=== PATIENT | male | born 1935 | race Caucasian/White ===

== ENCOUNTER 2017-11-20 18:55 | Emergency (ER) | payer MEDICARE, OTHER ==
[2017-11-20 19:17] VITALS: BP 149/80
[2017-11-20] MEDS ORDERED: Sodium Chloride 0.9% 10 ML Syringe FLUSH PRN (19:35)
[2017-11-20] MEDS ORDERED: HYDROmorphone 0.5 MG/0.5 ML SYRINGE IVPUSH ONE (19:35)
[2017-11-20] MEDS ORDERED: Ondansetron 4 MG/2 ML SDV IVPUSH ONE (19:36)
--- NOTE | 2017-11-20 19:39 | EDM.PDOC ---
ED HPI GENERAL MEDICAL PROBLEM - General Chief Complaint: Lower Extremity Injury/Pain Stated Complaint: FELL ON HIP ON THE ICE Time Seen by Provider: 11/20/17 19:27 Source of Information: Reports: Patient History Limitations: Reports: No Limitations - History of Present Illness INITIAL COMMENTS - FREE TEXT/NARRATIVE: Patient is a 82-year-old male presents ED complaining of left inguinal pain. Patient was snowblowing earlier this afternoon when turnaround slipped on the ice and his left leg went outward. Patient felt a pop in his inguinal region with worsening pain over the next few hours. Patient has increasing pain with palpation and also with walking. He is concerned he may a fractured his pelvis/ hip. He has a history of left hip replacement approx. 6 years ago. He has no pain to the lateral aspect of the hip. No pain to the femur, knee, lower leg, ankle, or foot. He denies falling or hitting his head nor injuring his neck, and back. Patient last ate at 1800 hrs. Left Groin Pain Score (Numeric/FACES): 8 - Related Data Allergies Allergy/AdvReac Type Severity Reaction Status Date / Time pain pill AdvReac Stomach Uncoded 11/20/17 20:07 Upset Home Meds: Home Meds Albuterol/Ipratropium [DuoNeb 3.0-0.5 MG/3 ML] 2 inh INH QID PRN 12/16/13 [ History] Losartan [Cozaar] 100 mg PO DAILY 30 Days tablet 12/20/13 [Rx] Albuterol/Ipratropium [DuoNeb 3.0-0.5 MG/3 ML] 3 ml NEB QID #60 neb 05/25/16 [Rx ] Aspirin 81 mg PO DAILY 11/20/17 [History] atorvaSTATin [Lipitor] 40 mg PO DAILY 11/20/17 [History] Past Medical History Cardiovascular History: Reports: High Cholesterol, Hypertension, SOB on Exertion Respiratory History: Reports: COPD Musculoskeletal History: Reports: Arthritis, Osteoarthritis Oncologic (Cancer) History: Reports: Other (See Below) Other Oncologic History: skin - Past Surgical History Neurological Surgical History: Reports: C-Spine, Lumbar Spine Musculoskeletal Surgical History: Reports: Hip Replacement, Joint Replacement, Shoulder Surgery Social & Family History - Family History Family Medical History: Noncontributory - Tobacco Use Smoking Status *Q: Former Smoker Years of Tobacco use: 10 Packs/Tins Daily: 0.5 Used Tobacco, but Quit: Yes Month Tobacco Last Used: 1 - Caffeine Use Caffeine Use: Reports: Coffee, Tea - Recreational Drug Use Recreational Drug Use: No - Living Situation & Occupation Living situation: Reports: Occupation: Retired Review of Systems - Review of Systems Review Of Systems: ROS reveals no pertinent complaints other than HPI. ED EXAM, GENERAL - Physical Exam Exam: See Below Exam Limited By: No Limitations General Appearance: Alert, WD/WN, Mild Distress Eye Exam: Bilateral Eye: PERRL Ears: Normal External Exam, Normal Canal, Hearing Grossly Normal, Normal TMs Nose: Normal Inspection Throat/Mouth: Normal Inspection, Normal Voice, No Airway Compromise Head: Atraumatic, Normocephalic Neck: Normal Inspection, Supple, Non-Tender, Full Range of Motion Respiratory/Chest: No Respiratory Distress, Lungs Clear, Normal Breath Sounds Cardiovascular: Normal Peripheral Pulses, Regular Rate, Rhythm Peripheral Pulses: 4+: Radial (L) GI/Abdominal: Normal Bowel Sounds, Soft, Non-Tender, No Organomegaly, No Distention (Male) Exam: No Hernia, Normal Inspection. No: Inguinal Lymphadenopathy, Scrotum Tenderness (L), Scrotum Tenderness (R), Testicular Tenderness (L), Testicular Tenderness (R) Back Exam: Normal Inspection Extremities: Normal Inspection Neurological: Alert, Oriented, CN II-XII Intact, Normal Cognition, No Motor/ Sensory Deficits Psychiatric: Normal Affect, Normal Mood Skin Exam: Warm, Dry, Intact, Normal Color, No Rash Course - Vital Signs Last Recorded V/S: Last Vital Signs Temp 98.1 F 11/20/17 19:12 Pulse 84 11/20/17 19:12 Resp 16 11/20/17 19:12 BP 149/80 H 11/20/17 19:12 Pulse Ox 95 11/20/17 19:12 - Orders/Labs/Meds Orders: Active Orders 24 hr Category Date Time Status Peripheral IV Care [RC] . DIRECTED Care 11/20/17 19:36 Active CPK [CREATINE KINASE,CK] [CHEM] Stat Lab 11/20/17 19:50 Received Sodium Chloride 0.9% [Normal Saline] 1,000 ml Med 11/20/17 19:45 Active IV ASDIRECTED Sodium Chloride 0.9% [Saline Flush] Med 11/20/17 19:35 Active 10 ml FLUSH ASDIRECTED PRN Peripheral IV Insertion Adult [OM.PC] Routine Oth 11/20/17 19:35 Ordered Medication Orders Sodium Chloride (Normal Saline) 1,000 mls @ 125 mls/hr IV ASDIRECTED DIANA Last Admin: 11/20/17 20:00 Dose: 125 mls/hr Sodium Chloride (Saline Flush) 10 ml FLUSH ASDIRECTED PRN PRN Reason: Keep Vein Open Last Admin: 11/20/17 20:10 Dose: 10 ml Meds: Medications Generic Name Dose Route Start Last Admin Trade Name Freq PRN Reason Stop Dose Admin Sodium Chloride 1,000 mls @ 125 mls/hr 11/20/17 19:45 11/20/17 20:00 Normal Saline IV 125 mls/hr ASDIRECTED DIANA Administration Sodium Chloride 10 ml 11/20/17 19:35 11/20/17 20:10 Saline Flush FLUSH 10 ml ASDIRECTED PRN Administration Keep Vein Open Discontinued Medications Generic Name Dose Route Start Last Admin Trade Name Freq PRN Reason Stop Dose Admin Hydromorphone HCl 0.5 mg 11/20/17 19:35 11/20/17 20:05 Dilaudid IVPUSH 11/20/17 19:36 0.5 mg ONETIME ONE Administration Ondansetron HCl 4 mg 11/20/17 19:36 11/20/17 20:00 Zofran IVPUSH 11/20/17 19:37 4 mg ONETIME ONE Administration - Re-Assessments/Exams Free Text/Narrative Re-Assessment/Exam: IV established with normal saline 125 mL per hour, Dilaudid 0.5 mg IVP, and Zofran 4 mg IVP. We'll obtain a CT of the pelvis with contrast to evaluate for pelvic and hip fracture. 11/20/17 21:20 CT of the pelvis impression: Incidental findings as noted above. Nothing acute is appreciated on CT study the pelvis. 11/20/17 21:49 reassessment, should results of CT study with the patient. Patient's pain has improved with the above therapies. Will discharge patient home with instructions as documented. No narcotics will be discharged with the patient. He has a history of inappropriately taking narcotics requiring hospitalization. Departure - Departure Time of Disposition: 21:50 Disposition: Home, Self-Care 01 Condition: Good Clinical Impression: Left groin pain - Discharge Information Instructions: Muscle Strain, [id number] Referrals: Michael Drummond MD [Primary Care Provider] - Forms: ED Department Discharge Additional Instructions: Utilize Aleve 1-2 tabs twice a day as needed for groin pain. In addition can take Tylenol 650 mg every 4-6 hours for pain as well. Refrain from any activities that cause worsening pain. Follow-up with your primary care provider for reevaluation if pain persists. Return to the ED if you develop any new or worsening symptoms. - My Orders Last 24 Hours: My Active Orders 11/20/17 19:35 Sodium Chloride 0.9% [Saline Flush] 10 ml FLUSH ASDIRECTED PRN Peripheral IV Insertion Adult [OM.PC] Routine 11/20/17 19:36 Peripheral IV Care [RC] . DIRECTED 11/20/17 19:45 Sodium Chloride 0.9% [Normal Saline] 1,000 ml IV ASDIRECTED 11/20/17 19:50 CPK [CREATINE KINASE,CK] [CHEM] Stat - Assessment/Plan Last 24 Hours: My Active Orders 11/20/17 19:35 Sodium Chloride 0.9% [Saline Flush] 10 ml FLUSH ASDIRECTED PRN Peripheral IV Insertion Adult [OM.PC] Routine 11/20/17 19:36 Peripheral IV Care [RC] . DIRECTED 11/20/17 19:45 Sodium Chloride 0.9% [Normal Saline] 1,000 ml IV ASDIRECTED 11/20/17 19:50 CPK [CREATINE KINASE,CK] [CHEM] Stat
[2017-11-20] MEDS ORDERED: Sodium Chloride 0.9% 1,000 ML IV SCH (19:45)
--- NOTE | 2017-11-20 20:35 | CT ---
CT pelvis Technique: Multiple axial sections through the pelvis were obtained. Reconstructed coronal and sagittal images were reviewed. Findings: Diffuse joint space narrowing is noted within the right hip. Left hip prosthesis is seen. Components are aligned. Heterotopic bone is noted superior to both hips which is old. Mild degenerative change as noted within the lumbar spine and within the sacroiliac joints. No acute fracture or other abnormality is appreciated. Previous lower lumbar spine surgery is noted. Impression: 1. Incidental findings as noted above. Nothing acute is appreciated on CT study of the pelvis. Diagnostic code #2
== END 2017-11-20 22:26 | disposition home or self-care (01) ==
LOC: JD.ED 18:55
DX: R10.32 Left lower quadrant pain (principal); I10 Essential (primary) hypertension; E78.00 Pure hypercholesterolemia, unspecified; J44.9 Chronic obstructive pulmonary disease, unspecified; Z87.891 Personal history of nicotine dependence; Z96.649 Presence of unspecified artificial hip joint; Z79.82 Long term (current) use of aspirin; Z79.899 Other long term (current) drug therapy; Z88.6 Allergy status to analgesic agent
CPT/HCPCS: 36415; 72192; 82550; 96361; 96374; 96375; 99284; J1170; J2405; J7040; J7050

== ENCOUNTER → 2021-02-23 | Day surgery (SDC) | payer MEDICARE, OTHER ==
[~2021-02-23] MED LIST: EPINEPHrine 1 MG/ML SDV ONE; Lactated Ringers 1,000 ML ONE; Lidocaine 1% 4 ML ONE; Lidocaine 1%/Sod Bicarbonate in NS 8.4% 1 ML Syringe IDERM PRN; Midazolam 1 MG/ML 2 ML SDV ONE; Ondansetron 4 MG/2 ML SDV ONE; Propofol 200 MG/20 ML SDV ONE; Ropivacaine 0.5% 5 MG/ML 30 ML SDV ONE; Sodium Chloride 0.9% 10 ML Syringe FLUSH PRN; ceFAZolin 1 GM Vial ONE; fentaNYL 100 MCG/2 ML SDV ONE; oxyCODONE 5 MG Tab PO SCH
[2021-02-23] MEDS: Lactated Ringers 1,000 ML IV SCH ×2 (06:20→09:45)
--- NOTE | 2021-02-23 06:45 | PCM.PREANE ---
Preanesthetic Assessment - Procedure Proposed Procedure: Right total Knee arthroplasty - Anesthesia/Transfusion/Family Hx Anesthesia History: Prior Anesthesia Without Reaction Family History of Anesthesia Reaction: No Transfusion History: No Prior Transfusion(s) - Review of Systems General: No Symptoms Pulmonary: No Symptoms Cardiovascular: Dyspnea on Exertion Gastrointestinal: No Symptoms Neurological: Numbness (on left side fingers and leg "at times") Other: Reports: None - Physical Assessment NPO Status Date: 02/22/21 NPO Status Time: 00:00 Height: 1.6 m Weight: 72.8 kg ASA Class: 3 Mental Status: Alert & Oriented x3 Airway Class: Mallampati = 2 Dentition: Reports: Implants (top front), Missing Tooth/Teeth Thyro-Mental Finger Breadths: 2 Mouth Opening Finger Breadths: 3 ROM/Head Extension: Limited/Partial Lungs: Clear to Auscultation, Normal Respiratory Effort Cardiovascular: Regular Rate, Regular Rhythm - Imaging/EKG Impressions: EKG SR rate 67 LBBB - Allergies Allergies/Adverse Reactions: Allergies Allergy/AdvReac Type Severity Reaction Status Date / Time tramadol Allergy Hallucinati Verified 02/23/21 06:45 ons - Anesthesia Plan Pre-Op Medication Ordered: Beta Ira Beta Ira: Metoprolol Med Last Dose Date: 02/23/21 Med Last Dose Time: 05:00 - Acknowledgements Anesthesia Type Planned: Spinal Pt an Appropriate Candidate for the Planned Anesthesia: Yes Alternatives and Risks of Anesthesia Discussed w Pt/Guardian: Yes Pt/Guardian Understands and Agrees with Anesthesia Plan: Yes PreAnesthesia Questionnaire HEENT History: Reports: Other (See Below) Other HEENT History: pterygium bilateral with surgical correction Cardiovascular History: Reports: High Cholesterol, Hypertension, SOB on Exertion, Other (See Below) Other Cardiovascular History: heart cath, CHF, chest pain Respiratory History: Reports: COPD, SOB, Other (See Below) Other Respiratory History: dypsnea on exertion, chronic airway obstruction, painful respiriation Gastrointestinal History: Reports: None Genitourinary History: Reports: BPH, Other (See Below) Other Genitourinary History: balanoposthitis [employer] History: Reports: None Musculoskeletal History: Reports: Arthritis, Osteoarthritis, Other (See Below) Other Musculoskeletal History: carpal tunnel syndrome, knee deformity, backache, ganglion cyst, hallux rigidous, forearm joint effusion, hammertoe Neurological History: Reports: Headaches, Chronic, Other (See Below) Other Neuro History: cerviclagia, altered mental state Psychiatric History: Reports: None Endocrine/Metabolic History: Reports: Diabetes, Type II Hematologic History: Reports: None Immunologic History: Reports: None Oncologic (Cancer) History: Reports: Other (See Below) Other Oncologic History: skin Dermatologic History: Reports: Other (See Below) Other Dermatologic History: actinic keratosis, lipoma - Past Surgical History Head Surgeries/Procedures: Reports: None HEENT Surgical History: Reports: Adenoidectomy, Cataract Surgery, Tonsillectomy Cardiovascular Surgical History: Reports: None Respiratory Surgical History: Reports: None GI Surgical History: Reports: None Female Surgical History: Reports: None Male Surgical History: Reports: None Endocrine Surgical History: Reports: None Neurological Surgical History: Reports: C-Spine, Lumbar Spine Musculoskeletal Surgical History: Reports: Hip Replacement, Joint Replacement, Shoulder Surgery Other Musculoskeletal Surgeries/Procedures:: left hip and knee Dermatological Surgical History: Reports: None - SUBSTANCE USE Tobacco Use Status *Q: Former Tobacco User Tobacco Use Within Last Twelve Months: No Second Hand Smoke Exposure: No Days Per Week of Alcohol Use: 1 Number of Drinks Per Day: 1 Total Drinks Per Week: 1 Recreational Drug Use History: No - HOME MEDS Home Medications: Home Meds Losartan [Cozaar] 100 mg PO DAILY 30 Days tablet 12/20/13 [Rx] Albuterol/Ipratropium [DuoNeb 3.0-0.5 MG/3 ML] 3 ml NEB QID #60 neb 05/25/16 [Rx] atorvaSTATin [Lipitor] 40 mg PO DAILY 11/20/17 [History] Albuterol Sulfate [Albuterol Sulfate HFA] 2 puff INH Q6H PRN 02/22/21 [History] Ascorbic Acid/Collagen Hydr [Collagen Plus Vit C] 1 cap PO DAILY 02/22/21 [History] Aspirin [Aspirin EC] 325 mg PO BID #60 tab 02/22/21 [Rx] Budesonide/Formoterol [Symbicort 160-4.5 MCG] 2 puff INH BID 02/22/21 [History] Cholecalciferol (Vitamin D3) [Vitamin D3] 1,000 unit PO DAILY 02/22/21 [History] Metoprolol Succinate 25 mg PO BID 02/22/21 [History] oxyCODONE 5 - 10 mg PO Q6H PRN #40 tab 02/22/21 [Rx] - CURRENT (IN HOUSE) MEDS Current Meds: Current Medications Morphine Sulfate 8 mg/Epinephrine HCl 0.3 mg/Cefuroxime Sodium 750 mg/Ketorolac Tromethamine 30 mg/Sodium Chloride 7.9 ml 0 mg .XX ASDIRECTED PRN PRN Reason: Pain Stop: 02/23/21 13:00 Lactated Ringer's (Ringers, Lactated) 1,000 mls @ 125 mls/hr IV ASDIRECTED DIANA Stop: 02/23/21 23:00 Lidocaine/Sodium Bicarbonate (Lidocaine 1%/Sod Bicarbonate In Ns 8.4% 1 Ml Syringe) 0.25 ml IDERM ONETIME PRN PRN Reason: Prior to IV Start Stop: 02/23/21 18:00 Sodium Chloride (Sodium Chloride 0.9% 10 Ml Syringe) 10 ml FLUSH ASDIRECTED PRN PRN Reason: Keep Vein Open Stop: 02/23/21 18:00 Discontinued Medications Tranexamic Acid (Tranexamic Acid 1,000 Mg/10 Ml Amp) Confirm Administered Dose 1,000 mg .ROUTE .STK-MED ONE Stop: 02/23/21 06:25 Vancomycin HCl (Vancomycin 1 Gm Sdv) Confirm Administered Dose 1 gm .ROUTE .STK- MED ONE Stop: 02/23/21 06:25
[2021-02-23] MEDS: Morphine 8 MG, EPINEPHrine 0.3 MG, Cefuroxime 750 MG, Ketorolac 30 MG, Sodium Chloride ... PRN ×10 (07:48→08:34)
[2021-02-23] MEDS: Vancomycin 1 GM SDV ONE ×2 (07:48→08:40)
--- NOTE | 2021-02-23 09:08 | PCM.POSTAN ---
POST ANESTHESIA ASSESSMENT - MENTAL STATUS Mental Status: Somnolent - VITAL SIGNS Vital Signs: Last Vital Signs Temp 36.5 C 02/23/21 06:10 Pulse 76 02/23/21 06:10 Resp 18 02/23/21 06:10 BP 107/67 02/23/21 06:10 Pulse Ox 98 02/23/21 06:10 - RESPIRATORY Respiratory Status: Respiratory Rate WNL, Airway Patent, O2 Saturation Stable, Supplemental Oxygen - CARDIOVASCULAR CV Status: Pulse Rate WNL, Blood Pressure Stable - GASTROINTESTINAL GI Status: No Symptoms - PAIN Pain Score: 0 - POST OP HYDRATION Hydration Status: Adequate & Stable - OBSERVATIONS Free Text/Narrative:: no anesthesia complications noted
--- NOTE | 2021-02-23 09:38 | PCM.SN.2 ---
- Free Text/Narrative Note: Right selective femoral nerve block at the adductor canal for post-procedure pain control under US guidance requested by Dr. Campo. Time Out: 920 Start: 920 End: 928 Chart reviewed. Consent signed. Questions answered. Appropriate monitors applied. Time out performed. Right mid-shaft femur identified with ultrasound, scanning medially of femur, the femoral artery in the adductor canal visualized, and the femoral nerve located laterally to the artery. The skin was prepped lateral to the ultrasound probe with chlorahexadine times three. The 21ga 4 insulated block needle was inserted under direct ultrasound guidance into the adductor canal. 20mL of 0.5% ropivacaine with 1:200,000 epinephrine was injected circumferentially around the nerve with intermittent negative aspiration noted. Patient tolerated the procedure well. Sterile technique noted along with sterile gloves, mask, and sterile probe cover. See picture on progress note and vital signs on nurses notes. Block completed in PACU. Chuck Gonzalez CRNA
--- NOTE | 2021-02-23 10:36 | PCM48HPAN ---
Post Anesthesia Note - EVALUATION WITHIN 48HRS OF ANESTHETIC Vital Signs in Normal Range: Yes Patient Participated in Evaluation: Yes Respiratory Function Stable: Yes Airway Patent: Yes Cardiovascular Function Stable: Yes Hydration Status Stable: Yes Pain Control Satisfactory: Yes Nausea and Vomiting Control Satisfactory: Yes Mental Status Recovered: Yes Vital Signs: Last Vital Signs Temp 36.1 C 02/23/21 09:50 Pulse 60 02/23/21 10:30 Resp 16 02/23/21 10:30 BP 111/83 02/23/21 10:30 Pulse Ox 97 02/23/21 10:30 - COMMENTS/OBSERVATIONS Free Text/Narrative:: no anesthesia complications noted
--- NOTE | 2021-02-23 10:45 | CR ---
Right knee: AP and crosstable lateral views of the right knee were obtained. Comparison: Prior right knee CT study of 02/08/21. Knee prosthesis and patellar prosthesis are noted. Components appear normal in alignment. Soft tissue air is noted. No acute underlying bony abnormality is seen. Vascular calcification is noted. Impression: 1. Satisfactory postop radiographic appearance of recently placed right knee prostheses. Diagnostic code #2
[2021-02-23 12:20] VITALS: BP 105/82; PULSE 59
--- NOTE | 2021-03-14 07:37 | PCM.OPNOTE ---
- General Post-Op/Procedure Note Date of Surgery/Procedure: 02/23/21 Operative Procedure(s): right total knee arthroplasty with [employer] robot[employer] Pre Op Diagnosis: right knee osteoarthrosis Post-Op Diagnosis: Same Anesthesia Technique: Local, MAC, Spinal Primary Surgeon: Arnoldo Campo Anesthesia Provider: Chuck Gonzalez Associate Faculty: Jazmin Mortensen Associate Faculty: Angely Florez EBL in mLs: 5 Complications: None Condition: Good Free Text/Narrative:: 4 femur 3 tibia 9mm 32x10 cemented
--- NOTE | 2021-03-15 04:19 | OR ---
DATE OF OPERATION: 03/14/2021 SURGEON: Arnoldo Campo MD OPERATION PERFORMED: Right total knee arthroplasty with [employer] robot[employer]. PREOPERATIVE DIAGNOSIS: Right knee osteoarthrosis. POSTOPERATIVE DIAGNOSIS: Right knee osteoarthrosis. ANESTHESIA: Local MAC with spinal. ANESTHESIA PROVIDER: Chuck Gonzalez CRNA. ASSISTANTS: Jazmin Mortensen PA-C, and Angely Florez LPN. ESTIMATED BLOOD LOSS: 5 mL. COMPLICATIONS: None. CONDITION: Stable. IMPLANTS: 1. Randall size 4 cemented PS femur. 2. Randall size 3 cemented [place] tibial base plate. 3. Randall size 3, 9 mm PS X3 polyethylene insert. 4. Randall size 32 x 10 mm cemented asymmetric patella. DESCRIPTION OF PROCEDURE: The patient was identified in the preop holding area. Proper site was marked and identified by the surgeon. The patient was taken back to the operating theater where after adequate anesthesia, the patient's right lower extremity had a nonsterile tourniquet applied and it was sterilely prepped and draped in the usual sterile fashion. OR time-out was performed. The patient received 2 g IV Ancef. Leg casillas was then applied to the right lower extremity. At this time, the right lower extremity was exsanguinated. Tourniquet was insufflated to 250 mmHg . Standard anterior incision was made. Medial parapatellar arthrotomy was created. Deep fibers of the MCL were raised as well as anterior fat pad was resected. Attention was turned to the patella. Patella measured 24 mm; it was resected to 14 mm for 32x10 mm patella. Drill holes were then drilled. Attention was then turned to the femur. Two 4.0 pins were placed intra-incisionally for the Kenna Jame robotic array and then 2 more were placed on the tibia 3 fingerbreadths below the tibial tubercle. The Kenna Jame robotic arrays were placed on both the femur and the tibia then at this time as well as checkpoints on the femur and tibia. Hip center rotation was then obtained. The medial and lateral malleoli were marked. At this time, 40 points were obtained off the femur and the tibia for the Kenna Jame robotic plan. The patient's knee was brought to full extension. Varus and valgus stresses were applied and then into 90 degrees of flexion with a curved osteotome. Varus and valgus stresses were applied. At this time, [employer] robotic plan was done to 19 mm gaps in both flexion and extension. Randall Mako robotic arm was then brought in. A straight saw blade was then used for the tibial cut, the anterior femoral cut, the anterior chamfer cut, and the posterior femoral cut. All bony fragments were removed. Saw blade was then switched out and the distal femoral cut as well as the posterior chamfer cut was completed. At this time, medial and lateral menisci were resected as well as any posterior osteophytes. A 3 trial tibia was then placed,4 trial femur was placed, and a 9 mm polyethylene trial liner was placed. The patient's knee was brought to full extension and flexion. Varus and valgus stresses were applied, was found to be stable with no instability. No signs of liftoff or loosening were noted. At this time, box cut was completed on the femur. The pins were removed from the femur and the tibia as well as the arrays and the checkpoints. Cement was mixed on the back table. All cut surfaces were irrigated with pulse lavage irrigation with Ancef and then completely dried. Once the cement was ready, the Kenna size 3 mm cemented [place] tibial base plate having been previously stamped and drilled, was then cemented in place on the tibia. The Randall size 4 mm cemented PS femur was cemented into place. The patient had a Kenna size 3, 9 mm PS X3 polyethylene insert placed. The patient's knee was brought to full extension. Excess cement was removed. A Kenna size 32 x 10 mm cemented asymmetric patella was then cemented into place. 1 L of pulse lavage irrigation with Ancef was irrigated through the knee along with 400 mL of Irrisept irrigation. Periarticular injection was completed. Topical tranexamic acid and vancomycin powder were applied. A #2 barbed suture was used for closure of the medial parapatellar arthrotomy in flexion. 2-0 Vicryl and Stratafix were used for subcutaneous closure. Prineo was used for cutaneous closure. The patient had a sterile soft dressing applied. The tibial holes were closed with nylon, and this was also covered with a sterile soft dressing. The patient had an MARK wrap applied and was sent to PACU in stable condition. The patient tolerated the procedure well. MMODAL /[id number] LILIANA
== END | disposition home or self-care (01) ==
LOC: JD.SDS 06:10
PROVIDERS: ATTEND Orthopaedic Surgery
DX: M17.11 Unilateral primary osteoarthritis, right knee (principal); I11.0 Hypertensive heart disease with heart failure; I50.22 Chronic systolic (congestive) heart failure; E78.00 Pure hypercholesterolemia, unspecified; I25.10 Atherosclerotic heart disease of native coronary artery without angina pectoris; J44.9 Chronic obstructive pulmonary disease, unspecified; E11.9 Type 2 diabetes mellitus without complications; Z98.890 Other specified postprocedural states; Z79.899 Other long term (current) drug therapy; Z79.82 Long term (current) use of aspirin; Z88.5 Allergy status to narcotic agent; Z87.891 Personal history of nicotine dependence
CPT/HCPCS: 27447; 73560; 97116; 97161; 97165; A9270; C1713; C1776; J0171; J0690; J0697; J1885; J2250; J2270; J2370; J2405; J2704; J2795; J3010; J3370; J7120; 01402; 64450; 76942; 99100

== ENCOUNTER 2022-06-27 16:34 | Emergency (ER) | payer MEDICARE, OTHER ==
[2022-06-27] MEDS ORDERED: Sodium Chloride 0.9% 10 ML Syringe FLUSH PRN (16:56)
[2022-06-27 17:29] LABS: ESTIMATED GFR 42 mL/min (>60)
[2022-06-27 18:35] VITALS: BP 183/58; PULSE 36
== END 2022-06-27 18:51 ==
LOC: JD.ED 16:34
DX: I44.2 Atrioventricular block, complete (principal); N28.9 Disorder of kidney and ureter, unspecified; E78.00 Pure hypercholesterolemia, unspecified; I11.0 Hypertensive heart disease with heart failure; I50.9 Heart failure, unspecified; J44.9 Chronic obstructive pulmonary disease, unspecified; Z88.5 Allergy status to narcotic agent; Z79.899 Other long term (current) drug therapy; Z79.82 Long term (current) use of aspirin
CPT/HCPCS: 36415; 71045; 71045-26; 80053; 83735; 84443; 84484; 85025; 93005; 99285